=== PATIENT | female | born 1990 | race Caucasian/White ===

== ENCOUNTER 2021-12-19 08:08 | Emergency (ER) | payer OTHER ==
[~2021-12-19] VITALS: Ht 160 cm; Wt 72.7 kg
[~2021-12-19 08:08] MED LIST: BACTDSB PO; CEPH500C3 PO
[2021-12-19 09:59] LABS: APPEARANCE,URINE CLOUDY (CLEAR); BILIRUBIN,URINE NEGATIVE (NEGATIVE); GLUCOSE, URINE (UA) >=1000 mg/dL (NEGATIVE); KETONES,URINE TRACE mg/dL (NEGATIVE); LEUKOCYTE ESTERASE ,URINE SMALL (NEGATIVE); NITRATE,URINE NEGATIVE (NEGATIVE); OCCULT BLOOD,URINE SMALL (NEGATIVE); PH,URINE 5.5 (5.0-8.0); PROTEIN,URINE TRACE (NEGATIVE); UROBILINOGEN,URINE 0.2 mg/dL (<=1.0)
[2021-12-19 10:06] LABS: BACTERIA,URINE Few /HPF (None Seen); RBC,URINE 0-2 /HPF (0-2); SQUAMOUS EPITHELIAL CELL,UR Few /LPF (None Seen); WBC,URINE 26-50 /HPF (0-5)
[2021-12-19 10:20] VITALS: BP 157/79
[2021-12-19] MEDS ORDERED: FLUC150T55 PO (10:21)
[2021-12-19] MEDS ORDERED: CIPR-279 PO (10:21)
== END 2021-12-19 10:39 | disposition home or self-care (01) ==
LOC: EMS 08:14
DX: N39.0 Urinary tract infection, site not specified (principal)
CPT/HCPCS: 81001; 82962; 84703; 87086; 99283